=== PATIENT | male | born 1990 | race Caucasian/White ===

== ENCOUNTER 2023-09-13 14:08 | Inpatient (IN) | payer OTHER ==
[~2023-09-13] VITALS: Ht 175.3 cm; Wt 102.3 kg
[~2023-09-13 14:08] MED LIST: NICOTINE 21MG/24HR 1 EA TRANSDERMAL TD SCH
[2023-09-13 14:46] LABS: HEMATOCRIT 47.3 % (42.0-52.0); HEMOGLOBIN 16.9 g/dl (13.5-17.5); MEAN CORPUSCULAR HEMOGLOBIN 29.8 pg (27.0-33.0); MEAN CORPUSCULAR HGB CONC 35.7 g/dl (32.0-36.5); MEAN CORPUSCULAR VOLUME 83.3 fl (80.0-96.0); PLATELET COUNT, AUTOMATED 325 10^3/uL (150-450); RED BLOOD COUNT 5.68 10^6/uL (4.30-6.10); WHITE BLOOD COUNT 9.6 10^3/uL (4.0-10.0)
[2023-09-13 15:05] LABS: AMPHETAMINES LEVEL URINE NEGATIVE (NEGATIVE); BARBITURATES URINE NEGATIVE (NEGATIVE); BENZODIAZEPINES URINE NEGATIVE (NEGATIVE); COCAINE METABOLITE URINE NEGATIVE (NEGATIVE)
[2023-09-13 15:06] LABS: CANNABINOIDS URINE NEGATIVE (NEGATIVE); METHADONE URINE NEGATIVE (NEGATIVE); OPIATES URINE NEGATIVE (NEGATIVE); PHENCYCLIDINE URINE NEGATIVE (NEGATIVE)
[2023-09-13 15:07] LABS: ETHYL ALCOHOL (ETHANOL) < 0.003 % (0.000-0.010)
[2023-09-13 15:09] LABS: ALKALINE PHOSPHATASE 58 U/L (46-116); ALT/SGPT 40 U/L (7.0-40); AST/SGOT 19 U/L (<34); BILIRUBIN,DIRECT < 0.1 MG/DL (<0.4); BILIRUBIN,TOTAL 0.3 MG/DL (0.3-1.2); BLOOD UREA NITROGEN 13 MG/DL (9-23); CALCIUM LEVEL 9.6 MG/DL (8.5-10.1); CARBON DIOXIDE LEVEL 25 MMOL/L (20-31); CHLORIDE LEVEL 108 MMOL/L (98-107); CREATININE FOR GFR 0.55 MG/DL (0.70-1.30); GLOMERULAR FILTRATION RATE > 60.0 (>60); GLUCOSE, FASTING 106 MG/DL (60-100); POTASSIUM SERUM 4.5 MMOL/L (3.5-5.1); SALICYLATE LEVEL < 3.0 MG/DL (<30); SODIUM LEVEL 143 MMOL/L (136-145)
[2023-09-13 15:12] LABS: THYROID STIMULATING HORMONE 1.413 uIU/ML (0.55-4.78)
[2023-09-13] MEDS ORDERED: IBUPROFEN 400MG TAB PO PRN (16:55)
[2023-09-13] MEDS ORDERED: diphenhydrAMINE 25MG CAP PO PRN (16:55)
[2023-09-13] MEDS ORDERED: MAALOX 30 ML SUSP *UDC PO PRN (16:55)
[2023-09-13] MEDS ORDERED: ACETAMINOPHEN TAB 650MG DOSE (2X325MG) PO PRN (16:55)
[2023-09-13] MEDS ORDERED: MOM 30ML SUSPENSION UDC PO PRN (16:55)
[2023-09-13] MEDS ORDERED: traZODone 50 MG TAB PO PRN (16:55)
[2023-09-13] MEDS ORDERED: HOME MED LIST COMPLETE! XX SCH (18:40)
[2023-09-14 06:29] VITALS: BP 127/86; TEMP 97.6; O2SAT 99
[2023-09-14] MEDS: NICOTINE 21MG/24HR 1 EA TRANSDERMAL TD SCH (11:17)
[2023-09-14] MEDS ORDERED: ALBUTEROL 90 MCG/ACT 8GM HFA INHALER INH PRN (11:25)
[2023-09-14 16:06] VITALS: BP 127/86; TEMP 99; O2SAT 98
[2023-09-15 06:08] VITALS: BP 99/58; TEMP 97.9; O2SAT 96
[2023-09-15] MEDS: NICOTINE 21MG/24HR 1 EA TRANSDERMAL TD SCH (08:49)
[2023-09-15] MEDS ORDERED: VENTAER INH (09:08)
[2023-09-15] MEDS ORDERED: NICO21PAT TD (09:08)
== END 2023-09-15 12:40 | disposition home or self-care (01) | DRG 755 ==
LOC: M ED 14:08 → M ED INP 16:52 → M PSY 18:24
PROVIDERS: ADMIT Student in an Organized Health Care Education/Training Program; ATTEND Student in an Organized Health Care Education/Training Program
DX: F43.25 Adjustment disorder with mixed disturbance of emotions and conduct (principal); F17.210 Nicotine dependence, cigarettes, uncomplicated; Z56.0 Unemployment, unspecified; Z88.2 Allergy status to sulfonamides

== ENCOUNTER 2025-06-08 09:03 | Emergency (ER) | payer MEDICAID, OTHER ==
[~2025-06-08] VITALS: Ht 172.7 cm; Wt 114.9 kg
[~2025-06-08 09:03] MED LIST changes: +NICO21PAT TD; -NICOTINE 21MG/24HR 1 EA TRANSDERMAL TD SCH; +VENTAER INH
[2025-06-08] MEDS ORDERED: HYDR-643 PO (09:11)
[2025-06-08] MEDS: LIDOCAINE 2% MDV 20 ML VIAL SC ONE (10:00)
[2025-06-08] MEDS ORDERED: CLIN-250 PO (10:20)
[2025-06-08] MEDS: IBUPROFEN 600 MG TAB PO ONE (10:51)
[2025-06-08 11:05] VITALS: BP 119/65; TEMP 96.9; O2SAT 95
[2025-06-09] MEDS ORDERED: DOXY-441 PO (16:17)
== END 2025-06-08 11:07 | disposition home or self-care (01) ==
LOC: M ED 09:03
DX: L02.01 Cutaneous abscess of face (principal); L03.213 Periorbital cellulitis; G47.33 Obstructive sleep apnea (adult) (pediatric); Z88.2 Allergy status to sulfonamides; Z79.2 Long term (current) use of antibiotics; Z79.51 Long term (current) use of inhaled steroids; Z79.899 Other long term (current) drug therapy

== ENCOUNTER 2025-06-09 13:55 | Emergency (ER) | payer OTHER ==
[~2025-06-09] VITALS: Ht 175.3 cm; Wt 114.4 kg
[~2025-06-09 13:55] MED LIST changes: +CLIN-250 PO; +HYDR-643 PO
[2025-06-09 14:46] LABS: BASO # 0.1 10^3/uL (0.0-0.2); BASO % 0.4 % (0.0-1.0); EOS # 1.1 10^3/uL (0.0-0.5); EOS % 8.0 % (0.0-3.0); LYMPH # 2.8 10^3/uL (1.5-5.0); LYMPH % 20.0 % (24.0-44.0); MONO # 1.5 10^3/uL (0.0-0.8); MONO % 10.6 % (2.0-8.0); NEUTROPHILS # 8.6 10^3/uL (1.5-8.5); NEUTROPHILS % 60.8 % (36.0-66.0); PLATELET COUNT, AUTOMATED 326 10^3/uL (150-450)
[2025-06-09] MEDS: ceFAZolin SOD 2 GM in DEXTROSE 5% (D5W) ADV/MINI-BAG 50 ML IV ONE (15:03)
[2025-06-09 15:15] LABS: CALCIUM LEVEL 9.1 MG/DL (8.5-10.1); CARBON DIOXIDE LEVEL 25 MMOL/L (20-31); CHLORIDE LEVEL 108 MMOL/L (98-107); CREATININE FOR GFR 0.61 MG/DL (0.70-1.30); GLOMERULAR FILTRATION RATE > 90.0 (>60); POTASSIUM SERUM 4.1 MMOL/L (3.5-5.1); SODIUM LEVEL 147 MMOL/L (136-145)
[2025-06-09] MEDS ORDERED: ISOVUE-370 76% 100 ML VIAL As Ordered ONE (15:21)
[2025-06-09] MEDS ORDERED: DOXY-441 PO (16:17)
[2025-06-09 16:26] VITALS: BP 140/85; TEMP 98.4; O2SAT 94
== END 2025-06-09 16:34 | disposition home or self-care (01) ==
LOC: M ED 13:55
DX: L03.211 Cellulitis of face (principal); J45.909 Unspecified asthma, uncomplicated; G47.33 Obstructive sleep apnea (adult) (pediatric); Z88.2 Allergy status to sulfonamides; Z79.2 Long term (current) use of antibiotics; Z79.51 Long term (current) use of inhaled steroids; Z79.899 Other long term (current) drug therapy
CPT/HCPCS: 70450; 70487; 80048; 85025; 87040; 93041; 94760; 96365; 99284; J0690; Q9967